=== PATIENT | male | born 1975 | race Caucasian/White ===

== ENCOUNTER → 2019-05-29 | Outpatient (CLI) | payer OTHER ==
[~2019-05-29] MED LIST: ASACOL HD800 MG PO; CANASA 1000MG1000 MG RC; FERRATE325 MG PO; GI COCKTAIL SUSP1 M1 PO; NORCO 325 MG-51 TAB PO
== END ==
LOC: COL.RAD 07:26
DX: R20.0 Anesthesia of skin (principal); R25.1 Tremor, unspecified